=== PATIENT | female | born 1960 | race African-American/Black ===

== ENCOUNTER 2018-04-15 01:48 | Emergency (ER) | payer OTHER ==
[~2018-04-15] VITALS: Ht 160 cm; Wt 95.3 kg
[~2018-04-15 01:48] MED LIST: DEPAKOTE ER500 MG PO; DILANTIN100 MG PO; HYDROCHLOROTHIA25 M2 PO; NORCO 5-325 TA1 EACH PO; NORVASC10 MG PO; PHENYTOIN SODI300 MG PO
[2018-04-15 02:25] LABS: URINE BILIRUBIN NEGATIVE (Negative); URINE BLOOD 3+ (Negative); URINE CLARITY CLEAR; URINE COLOR YELLOW; URINE GLUCOSE-RANDOM* NEGATIVE (Negative); URINE KETONES NEGATIVE (Negative); URINE LEUKOCYTES-REFLEX NEGATIVE (Negative); URINE NITRITE-REFLEX NEGATIVE (Negative); URINE PROTEIN (DIPSTICK) NEGATIVE (Negative); URINE SPECIFIC GRAVITY 1.015 (1.005-1.035); URINE UROBILINOGEN 0.2 E.U./dl (0.2-1.0)
[2018-04-15 02:43] LABS: BACTERIA-REFLEX 1-9 Few /HPF (None Seen); CASTS None Seen /LPF (None Seen); CRYSTALS None Seen /LPF (None Seen); SQUAMOUS 0-3 Few /LPF (0-3); URINE RBC 3-10 Few /HPF (0-2); URINE WBC-REFLEX 0-5 Rare /HPF (0-5)
[2018-04-15] MEDS ORDERED: NAPROSYN500 MG PO (03:52)
[2018-04-15] MEDS ORDERED: NORVASC10 MG PO (04:05)
[2018-04-15] MEDS ORDERED: HYDROCHLOROTHIA25 M2 PO (04:05)
[2018-04-15 04:09] VITALS: BP 133/82
== END 2018-04-15 04:15 | disposition home or self-care (01) ==
LOC: ER 01:48
PROVIDERS: Emergency Medicine
DX: M79.10 Myalgia, unspecified site (principal); R10.31 Right lower quadrant pain; R35.0 Frequency of micturition; F17.210 Nicotine dependence, cigarettes, uncomplicated; I10 Essential (primary) hypertension